=== PATIENT | female | born 1945 | race Caucasian/White ===

== ENCOUNTER → 2023-12-07 13:01 | Outpatient (REF) | payer MEDICARE, SELFPAY | LOC: RAD 13:01 | PROVIDERS: ATTENDING PHYSICIAN Surgery Vascular Surgery; FAMILY PHYSICIAN Family Medicine | DX: I73.9 Peripheral vascular disease, unspecified (principal) | CPT/HCPCS: 93922; 93925 ==

== ENCOUNTER → 2024-01-07 16:02 | Outpatient (REF) | payer MEDICARE, SELFPAY | LOC: MRI 3T 16:02 | PROVIDERS: ATTENDING PHYSICIAN Student in an Organized Health Care Education/Training Program; FAMILY PHYSICIAN Family Medicine | DX: M54.2 Cervicalgia (principal) | CPT/HCPCS: 72141 ==

== ENCOUNTER → 2024-02-10 15:47 | Outpatient (REF) | payer MEDICARE, SELFPAY | LOC: REG 15:47 | PROVIDERS: ATTENDING PHYSICIAN Urology | DX: N39.0 Urinary tract infection, site not specified (principal) | CPT/HCPCS: 87086 ==

== ENCOUNTER 2024-02-14 06:35 | Day surgery (SDC) | payer MEDICARE, SELFPAY ==
[2024-02-11 13:36] VITALS: BMI 31.4
[2024-02-14 07:35] VITALS: BP 182/94
[2024-02-14] MEDS: NORMOSOL-R 1000 IV (07:35)
[2024-02-14 07:46] VITALS: BMI 31.4
[2024-02-14 09:39] VITALS: BP 117/55
[2024-02-14 09:45] VITALS: BP 105/56
[2024-02-14 10:00] VITALS: BP 113/64
[2024-02-14 10:15] VITALS: BP 110/48
== END 2024-02-14 10:28 | disposition home or self-care (01) ==
LOC: SDS 06:35
PROVIDERS: ATTENDING PHYSICIAN Urology; FAMILY PHYSICIAN Family Medicine
DX: N39.41 Urge incontinence (principal); R15.9 Full incontinence of feces; N39.3 Stress incontinence (female) (male); Z79.899 Other long term (current) drug therapy
CPT/HCPCS: 64590; 64561; 72170; 76000; C1767; C1778; C1787

== ENCOUNTER → 2024-09-19 15:37 | Outpatient (REF) | payer MEDICARE, SELFPAY | LOC: WDC 15:37 | PROVIDERS: ATTENDING PHYSICIAN Family Medicine | DX: Z12.31 Encounter for screening mammogram for malignant neoplasm of breast (principal) | CPT/HCPCS: 77063; 77067 ==

== ENCOUNTER → 2024-10-12 08:42 | Outpatient (REF) | payer MEDICARE, SELFPAY ==
[2024-10-12 13:02] LABS: Hematocrit 39.7 % (37.0-47.0); Hemoglobin 12.7 g/dL (12.0-16.0); Mean Corpuscular Hgb 27.5 pg (27.0-31.0); Mean Corpuscular Volume 86.1 fL (81.0-99.0); Mean Platelet Volume 10.5 fL (7.4-10.4); Platelet Count 248 10^3/uL (130-400); Red Blood Cell Count 4.61 10^6/uL (4.20-5.40); Red Cell Dist. Width 14.6 % (11.5-14.5); White Blood Cell Count 7.2 10^3/uL (4.8-10.8)
[2024-10-12 13:43] LABS: Blood Urea Nitrogen 15 mg/dl (7-17); Calcium 9.4 mg/dl (8.4-10.2); Carbon Dioxide 25 mmol/L (22-30); Chloride 107 mmol/L (98-107); Glucose 91 mg/dl (70-99); Potassium 4.3 mmol/L (3.5-5.1); Sodium 142 mmol/L (135-145); eGFR > 60.00
== END ==
LOC: SDSPAT 08:42
PROVIDERS: ATTENDING PHYSICIAN Obstetrics & Gynecology; FAMILY PHYSICIAN Family Medicine
DX: Z01.818 Encounter for other preprocedural examination (principal)
CPT/HCPCS: 36415; 80048; 85027; 86850; 86900; 86901; 93005

== ENCOUNTER 2024-10-23 08:17 | Day surgery (SDC) | payer MEDICARE, SELFPAY ==
[2024-10-12 12:41] VITALS: BMI 31.9
--- NOTE | 2024-10-12 12:59 | PTCARENOTE ---
Patient 4/3 ECG abnormal- Nonspecific T wave- also noted on 10/12/22 ECG
[2024-10-23] VITALS (7 sets, daily range): BP systolic 141–178; BP diastolic 49–77; BMI 31.9
[2024-10-23] MEDS: NORMOSOL-R/PLASMALYTE-A 1000 IV (11:49)
[2024-10-23] MEDS: Pyridium 200 MG PO (11:52)
== END 2024-10-23 16:44 | disposition home or self-care (01) ==
LOC: SDS 08:17
PROVIDERS: ATTENDING PHYSICIAN Obstetrics & Gynecology; FAMILY PHYSICIAN Family Medicine
DX: N39.3 Stress incontinence (female) (male) (principal); N36.41 Hypermobility of urethra
CPT/HCPCS: 57288; 86900; 86901; C1771

== ENCOUNTER → 2024-11-15 10:05 | Outpatient (REF) | payer MEDICARE, SELFPAY | LOC: RAD 10:05 | PROVIDERS: ATTENDING PHYSICIAN Family Medicine | DX: M79.89 Other specified soft tissue disorders (principal); I87.2 Venous insufficiency (chronic) (peripheral) | CPT/HCPCS: 93971 ==

== ENCOUNTER → 2024-12-18 10:04 | Outpatient (REF) | payer MEDICARE, SELFPAY | LOC: DHVS 10:04 | PROVIDERS: ATTENDING PHYSICIAN Registered Nurse; FAMILY PHYSICIAN Family Medicine | DX: I73.9 Peripheral vascular disease, unspecified (principal) | CPT/HCPCS: 93922; 93925 ==